=== PATIENT | female | born 1990 | race Caucasian/White ===

== ENCOUNTER 2018-01-05 16:38 | Emergency (ER) | payer SELFPAY ==
--- NOTE | 2018-01-05 17:55 | RAD REPORT ---
EXAM DESCRIPTION: RAD - Foot Right 3 View - 01/05/2018 5:47 pm CLINICAL HISTORY: Trauma to great toe. COMPARISON: None. FINDINGS: Moderate soft tissue swelling affects the great toe. Lucency seen at the base of the dista l phalanx of the great toe lateral aspect.
[2018-01-05 17:56] LABS: Urine Blood NEGATIVE (NEG); Urine Glucose NEGATIVE (NEG); Urine Protein NEGATIVE (NEG); Urine Specific Gravity 1.025 (1.005-1.030)
[2018-01-05] MEDS ORDERED: TETANUS & DIPHTHERIA TOX,ADULT 0.5 ML VIAL ONE (18:19)
[2018-01-05] MEDS ORDERED: CODEINE 30MG/APAP 300MG TAB ONE (18:35)
[2018-01-05] MEDS ORDERED: IBUPROFEN 400 MG TAB ONE (18:35)
--- NOTE | 2018-01-05 18:36 | ER ---
Nurse's Notes [facility] Name: Leon Arango Age: 27 yrs Sex: Female : 1990 Arrival Date: 01/05/2018 Time: 16:41 Bed 23 Private MD: None, None Diagnosis: Nondisplaced fracture of distal phalanx of right great toe Presentation: 01/05 17:12 Presenting complaint: Patient states: " I was moving one of those big box TVs and I ph dropped it on my foot." Swelling and bruising noted to top of R foot, small laceration also present. Transition of care: patient was not received from another setting of care. Onset of symptoms was January 05, 2018. Risk Assessment: Do you want to hurt yourself or someone else? Patient reports no desire to harm self or others. Initial Sepsis Screen: Does the patient meet any 2 criteria? No. Patient's initial sepsis screen is negative. Does the patient have a suspected source of infection? No. Patient's initial sepsis screen is negative. Care prior to arrival: None. 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 - Social history:: Smoking status: Patient uses tobacco products, smokes one-half pack cigarettes per day. - Ebola Screening: : No symptoms or risks identified at this time. Screenin:45 Abuse screen: Denies threats or abuse. Denies injuries from another. Nutritional aj1 screening: No deficits noted. 19:28 Tuberculosis screening: No symptoms or risk factors identified. Fall Risk No fall in aj1 past 12 months (0 pts). No secondary diagnosis (0 pts). No IV (0 pts). Ambulatory Aid- Crutches/Cane/Walker (15 pts). Gait- Impaired (20 pts.). Mental Status- Oriented to own ability (0 pts). Total Garcia Fall Scale indicates Low Risk Score (25-44 pts). As available Patient and Family Educated on Fall Prevention Program and strategies. Assessment: 17:45 General: Appears in no apparent distress. uncomfortable, Behavior is calm, cooperative, aj1 appropriate for age. Pain: Complains of pain in dorsum of right foot Pain does not radiate. Pain currently is 8 out of 10 on a pain scale. Neuro: Level of Consciousness is awake, alert, obeys commands, Oriented to person, place, time, situation, Speech is normal, Facial symmetry appears normal. Cardiovascular: Patient's skin is warm and dry. Respiratory: Airway is patent Respiratory effort is even, unlabored, Respiratory pattern is regular, symmetrical. GI: No signs and/or symptoms were reported involving the gastrointestinal system. : No signs and/or symptoms were reported regarding the genitourinary system. EENT: No signs and/or symptoms were reported regarding the EENT system. Derm: Bruising that is dark purple, on dorsum of right foot. Musculoskeletal: Range of motion: intact in all extremities, Patient is unable to bear weight on the right foot. 18:30 Reassessment: Patient appears in no apparent distress at this time. No changes from aj1 previously documented assessment. Patient and/or family updated on plan of care and expected duration. Pain level reassessed. Patient is alert, oriented x 3, equal unlabored respirations, skin warm/dry/pink. Patient states that her foot is hurting and she would like something for pain. Notified SANTOS Trevizo. 19:27 Reassessment: Patient appears in no apparent distress at this time. No changes from aj1 previously documented assessment. Patient and/or family updated on plan of care and expected duration. Pain level reassessed. Patient is alert, oriented x 3, equal unlabored respirations, skin warm/dry/pink. Vital Signs: 17:14 BP 122 / 83; Pulse 91; Resp 16; Temp 97.9; Pulse Ox 96% on R/A; Weight 111.13 kg; ph Height 5 ft. 2 in. (157.48 cm); Pain 7/10; 17:14 Body Mass Index 44.81 (111.13 kg, 157.48 cm) ph ED Course: 16:41 Patient arrived in ED. mr 16:41 None, None is Private Physician. mr 17:13 Triage completed. ph 17:15 Arm band placed on. ph 17:18 Patric Heard PA is PHCP. cp 17:18 Patric Pablo MD is Attending Physician. cp 17:34 Jenifer Barraza, RN is Primary Nurse. aj1 17:42 X-ray completed. Portable x-ray completed in exam room. Patient tolerated procedure kp1 well. 17:44 XRAY Foot RIGHT 3 View In Process Unspecified. EDMS 17:45 Patient has correct armband on for positive identification. Bed in low position. Call aj1 light in reach. Side rails up X 1. 17:45 No provider procedures requiring assistance completed. aj1 19:29 Patient did not have IV access during this emergency room visit. aj1 Administered Medications: 18:32 Drug: Tetanus-Diphtheria Toxoid Adult 0.5 ml {Catalog Specialist: [employer]. Exp: aj1 04/12/2020. Lot #: [id number]. } Route: IM; Site: right deltoid; 19:30 Follow up: Response: No adverse reaction aj1 18:42 Drug: Ibuprofen 800 mg Route: PO; aj1 19:30 Follow up: Response: No adverse reaction aj1 18:42 Drug: Tylenol #3 (300 mg-30 mg) 2 tabs Route: PO; aj1 19:30 Follow up: Response: No adverse reaction aj1 Outcome: 18:36 Discharge ordered by MD. cp 19:29 Discharged to home via wheelchair, with crutches. aj1 19:29 Condition: good 19:29 Discharge instructions given to patient, Instructed on discharge instructions, follow up and referral plans. no drinking with medication, no driving heavy equipment, medication usage, Demonstrated understanding of instructions, follow-up care, medications, Prescriptions given X 2. 19:30 Patient left the ED. aj1 Signatures: Dispatcher [employer] EDMS Jenifer Barraza, RN RN aj1 Mariya Singh Patricia, RN RN Patric Eric, Cindy King cp 1
--- NOTE | 2018-01-05 18:36 | EDPHYS ---
Physician Documentation [facility] Name: Leon Arango Age: 27 yrs Sex: Female : 1990 Arrival Date: 01/05/2018 Time: 16:41 Bed 23 Private MD: None, None ED Physician Patric Pablo HPI: 01/05 17:26 This 27 yrs old Female presents to ER via Ambulatory with complaints of Foot cp Injury. 17:26 The patient presents with a crush injury, TV, an injury. The complaints affect the cp dorsum of right foot. 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 - Social history:: Smoking status: Patient uses tobacco products, smokes one-half pack cigarettes per day. - Ebola Screening: : No symptoms or risks identified at this time. ROS: 17:30 Constitutional: Negative for body aches, chills, fever, poor PO intake. cp 17:30 Eyes: Negative for injury, pain, redness, and discharge. cp 17:30 ENT: Negative for drainage from ear(s), ear pain, sore throat, difficulty swallowing, difficulty handling secretions. 17:30 Cardiovascular: Negative for chest pain. 17:30 Respiratory: Negative for cough, shortness of breath, wheezing. 17:30 Abdomen/GI: Negative for abdominal pain, nausea, vomiting, and diarrhea. 17:30 Back: Negative for pain at rest, pain with movement, radiated pain. 17:30 MS/extremity: Positive for injury or acute deformity, abrasion, ecchymosis, pain, swelling, tenderness, of the dorsum of right foot. 17:30 All other systems are negative. Exam: 17:40 Constitutional: The patient appears in no acute distress, alert, awake, well developed, cp well nourished, uncomfortable. 17:40 Head/Face: Normocephalic, atraumatic. cp 17:40 Eyes: Periorbital structures: appear normal, Conjunctiva: normal, no exudate, no injection, Lids and lashes: appear normal, bilaterally. 17:40 ENT: External ear(s): are unremarkable, Nose: is normal, Posterior pharynx: is normal, airway is patent. 17:40 Chest/axilla: Inspection: normal. 17:40 Cardiovascular: Rate: normal. 17:40 Respiratory: the patient does not display signs of respiratory distress, Respirations: normal, no use of accessory muscles, no retractions, no splinting, no tachypnea. 17:40 Abdomen/GI: Exam negative for discomfort, distension, guarding, Inspection: abdomen appears normal. 17:40 Musculoskeletal/extremity: Extremities: grossly normal except: noted in the dorsum of right foot: contusion, ecchymosis, pain, Pulses: noted to be 2+ in the right dorsalis pedis artery. 17:40 Skin: injury, abrasion(s), small abrasion noted, of the dorsum of right foot. Vital Signs: 17:14 BP 122 / 83; Pulse 91; Resp 16; Temp 97.9; Pulse Ox 96% on R/A; Weight 111.13 kg; ph Height 5 ft. 2 in. (157.48 cm); Pain 7/10; 17:14 Body Mass Index 44.81 (111.13 kg, 157.48 cm) ph MDM: 17:18 Patient medically screened. cp 18:00 Differential diagnosis: dislocation, closed fracture, contusion. cp 18:35 Data reviewed: vital signs, nurses notes, radiologic studies, plain films. Test cp interpretation: by ED physician or midlevel provider: plain radiologic studies. Counseling: I had a detailed discussion with the patient and/or guardian regarding: the historical points, exam findings, and any diagnostic results supporting the discharge/admit diagnosis, radiology results, the need for outpatient follow up, a family practitioner, to return to the emergency department if symptoms worsen or persist or if there are any questions or concerns that arise at home. 01/05 17:32 Order name: Urine Dipstick--Ancillary (enter results); Complete Time: 19:13 ag 01/05 17:32 Order name: Urine --Ancillary (enter results); Complete Time: 19:13 ag 01/05 17:25 Order name: XRAY Foot RIGHT 3 View; Complete Time: 19:13 cp 01/05 19:13 Interpretation: Report reviewed. cp 01/05 17:26 Order name: Urine Dipstick-Ancillary (obtain specimen); Complete Time: 17:35 cp 01/05 17:26 Order name: Urine Test (obtain specimen); Complete Time: 17:35 cp 01/05 18:30 Order name: Crutches; Complete Time: 18:42 cp 01/05 18:30 Order name: Post-op shoe; Complete Time: 18:42 cp Administered Medications: 18:32 Drug: Tetanus-Diphtheria Toxoid Adult 0.5 ml {Transportation Officer: [employer]. Exp: aj1 04/12/2020. Lot #: [id number]. } Route: IM; Site: right deltoid; 19:30 Follow up: Response: No adverse reaction 18:42 Drug: Ibuprofen 800 mg Route: PO; aj1 19:30 Follow up: Response: No adverse reaction 18:42 Drug: Tylenol #3 (300 mg-30 mg) 2 tabs Route: PO; aj1 19:30 Follow up: Response: No adverse reaction [facility] Disposition: 01/05/18 18:36 Discharged to Home. Impression: Nondisplaced fracture of distal phalanx of right great toe. - Condition is Stable. - Discharge Instructions: Toe Fracture. - Prescriptions for Naprosyn 500 mg Oral Tablet - take 1 tablet by ORAL route 2 times per day take with food; 20 tablet. Tylenol- Codeine #3 300-30 mg Oral Tablet - take 2 tablets by ORAL route every 6 hours As needed; 20 tablet. - Medication Reconciliation Form, Thank You Letter, Antibiotic Education, Prescription Opioid Use form. - Follow up: Private Physician; When: 2 - 3 days; Reason: Recheck today's complaints. - Problem is new. - Symptoms have improved. Addendum: 01/09/2018 09:00 Co-signature as Attending Physician, Patric Pablo MD I agree with the assessment and c olsen plan of care. Signatures: Dispatcher [employer] Jenifer Coleman RN RN aj1 Patric Pablo MD MD cha Hall, Patricia RN RN Patric Heard PA PA cp Corrections: (The following items were deleted from the chart) 01/05 18:37 18:36 01/05/2018 18:36 Discharged to Home. Impression: Nondisplaced fracture of distal cp phalanx of left great toe. Condition is Stable. Forms are Medication Reconciliation Form, Thank You Letter, Antibiotic Education, Prescription Opioid Use. Follow up: Private Physician; When: 2 - 3 days; Reason: Recheck today's complaints. Problem is new. Symptoms have improved. cp 19:30 18:37 01/05/2018 18:36 Discharged to Home. Impression: Nondisplaced fracture of distal aj1 phalanx of right great toe. Condition is Stable. Forms are Medication Reconciliation Form, Thank You Letter, Antibiotic Education, Prescription Opioid Use. Follow up: Private Physician; When: 2 - 3 days; Reason: Recheck today's complaints. Problem is new. Symptoms have improved. cp
[2018-01-05 19:38] VITALS: BP 122/83; TEMP 97.9; O2SAT 96
== END 2018-01-05 19:30 | disposition home or self-care (01) ==
LOC: ER 16:38
DX: S92.424A Nondisplaced fracture of distal phalanx of right great toe, initial encounter for closed fracture (principal); X58.XXXA Exposure to other specified factors, initial encounter; Y93.89 Activity, other specified; Y92.9 Unspecified place or not applicable; Z23 Encounter for immunization; F17.210 Nicotine dependence, cigarettes, uncomplicated
CPT/HCPCS: 81003; 81025; 90714; 99283

== ENCOUNTER 2018-08-21 16:43 | Emergency (ER) | payer SELFPAY ==
--- NOTE | 2018-08-21 17:08 | EDPHYS ---
Physician Documentation [facility] Name: Leon Arango Age: 28 yrs Sex: Female : 1990 Arrival Date: 08/21/2018 Time: 16:46 Bed 23 Private MD: ED Physician Matthew Auguste HPI: 08/21 17:23 This 28 yrs old Female presents to ER via Ambulatory with complaints of snw Toothache. 17:23 The patient presents with broken tooth/teeth, pain. The problem is located in the upper snw left cuspid (#11). Onset: The symptoms/episode began/occurred gradually, 6 month(s) ago, and became worse yesterday. Duration: The symptoms are continuous. Associated signs and symptoms: The patient has no apparent associated signs or symptoms. Severity of symptoms: At their worst the symptoms were moderate. It is unknown whether or not the patient has had similar symptoms in the past. It is unknown whether or not the patient has recently seen a physician. 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 - Social history:: Smoking status: Patient uses tobacco products, Patient uses alcohol, occasionally. - Ebola Screening: : Patient negative for fever greater than or equal to 101.5 degrees Fahrenheit, and additional compatible Ebola Virus Disease symptoms Patient denies exposure to infectious person Patient denies travel to an Ebola-affected area in the 21 days before illness onset. ROS: 17:22 Constitutional: Negative for fever, chills, and weight loss, Eyes: Negative for injury, snw pain, redness, and discharge, Neck: Negative for injury, pain, and swelling, Cardiovascular: Negative for chest pain, palpitations, and edema, Respiratory: Negative for shortness of breath, cough, wheezing, and pleuritic chest pain, Abdomen/GI: Negative for abdominal pain, nausea, vomiting, diarrhea, and constipation, Back: Negative for injury and pain, : Negative for injury, bleeding, discharge, and swelling, MS/Extremity: Negative for injury and deformity, Skin: Negative for injury, rash, and discoloration, Neuro: Negative for headache, weakness, numbness, tingling, and seizure. 17:22 ENT: Positive for dental pain. Exam: 17:21 Constitutional: This is a well developed, well nourished patient who is awake, alert, snw and in no acute distress. Head/Face: Normocephalic, atraumatic. Eyes: Pupils equal round and reactive to light, extra-ocular motions intact. Lids and lashes normal. Conjunctiva and sclera are non-icteric and not injected. Cornea within normal limits. Periorbital areas with no swelling, redness, or edema. Neck: Trachea midline, no thyromegaly or masses palpated, and no cervical lymphadenopathy. Supple, full range of motion without nuchal rigidity, or vertebral point tenderness. No Meningismus. Chest/axilla: Normal chest wall appearance and motion. Nontender with no deformity. No lesions are appreciated. Cardiovascular: Regular rate and rhythm with a normal S1 and S2. No gallops, murmurs, or rubs. Normal PMI, no JVD. No pulse deficits. Respiratory: Lungs have equal breath sounds bilaterally, clear to auscultation and percussion. No rales, rhonchi or wheezes noted. No increased work of breathing, no retractions or nasal flaring. Abdomen/GI: Soft, non-tender, with normal bowel sounds. No distension or tympany. No guarding or rebound. No evidence of tenderness throughout. Back: No spinal tenderness. No costovertebral tenderness. Full range of motion. Skin: Warm, dry with normal turgor. Normal color with no rashes, no lesions, and no evidence of cellulitis. MS/ Extremity: Pulses equal, no cyanosis. Neurovascular intact. Full, normal range of motion. Neuro: Awake and alert, GCS 15, oriented to person, place, time, and situation. Cranial nerves II-XII grossly intact. Motor strength 5/5 in all extremities. Sensory grossly intact. Cerebellar exam normal. Normal gait. Psych: Awake, alert, with orientation to person, place and time. Behavior, mood, and affect are within normal limits. 17:21 ENT: External ear(s): are unremarkable, Ear canal(s): are normal, TM's: are normal, Nose: is normal, Mouth: is normal, Posterior pharynx: is normal, Dental exam: fractured teeth are noted, specifically the upper left cuspid (#11), pain, Voice: is normal. Vital Signs: 16:49 BP 104 / 54; Pulse 85; Resp 18; Temp 98.2(TE); Pulse Ox 96% on R/A; Weight 108.86 kg; hj Height 5 ft. 2 in. (157.48 cm); Pain 8/10; 16:49 Body Mass Index 43.90 (108.86 kg, 157.48 cm) hj MDM: 16:51 Patient medically screened. snw 17:20 Data reviewed: vital signs, nurses notes. Data interpreted: Pulse oximetry: on room air snw is 96 %. Interpretation: acceptable. Counseling: I had a detailed discussion with the patient and/or guardian regarding: the historical points, exam findings, and any diagnostic results supporting the discharge/admit diagnosis, the need for outpatient follow up, to return to the emergency department if symptoms worsen or persist or if there are any questions or concerns that arise at home. Special discussion: Based on the history and exam findings, there is no indication for further emergent testing or inpatient evaluation. I discussed with the patient/guardian the need to see a dentist for further evaluation of the symptoms. Administered Medications: 17:30 Drug: Clindamycin 300 mg Route: PO; ls4 17:50 Follow up: Response: No adverse reaction ls4 17:30 Drug: UltRAM 50 mg Route: PO; ls4 17:50 Follow up: Response: No adverse reaction; Marked relief of symptoms ls4 Disposition: 08/22 07:19 Co-signature as Attending Physician, Matthew Auguste MD. rn Disposition: 08/21/18 17:08 Discharged to Home. Impression: Cracked tooth, Dental caries, unspecified. - Condition is Stable. - Discharge Instructions: Dental Caries, Adult, Dental Pain, Diet and Dental Disease, Preventive Dental Care, Adult. - Prescriptions for chlorhexidine gluconate 0.12 % Mucous Membrane mouthwash - place 15 milliliter by MUCOUS MEMBRANE route 2 times per day after brushing teeth, swish in mouth for 30 seconds then spit out; 480 milliliter. Clindamycin HCl 150 mg Oral Capsule - take 1 capsule by ORAL route every 6 hours for 10 days; 40 capsule. Diclofenac Sodium 75 mg Oral Tablet Sustained Release - take 1 tablet by ORAL route 2 times per day; 30 tablet. - Medication Reconciliation Form, Thank You Letter, Antibiotic Education, Prescription Opioid Use form. - Follow up: Private Physician; When: 1 - 2 days; Reason: Recheck today's complaints, Continuance of care, Re-evaluation by your physician. Follow up: Emergency Department; When: As needed; Reason: Worsening of condition. - Notes: Dental wax Signatures: Perlita Lockhart, SALES PROFESSIONAL-C SALES PROFESSIONAL-Csnw Matthew Auguste MD MD rn Joaquin, Henry, RN RN hj Stewart, Lisa, RN RN ls4 Corrections: (The following items were deleted from the chart) 08/21 17:52 17:08 08/21/2018 17:08 Discharged to Home. Impression: Cracked tooth; Dental caries, ls4 unspecified. Condition is Stable. Forms are Medication Reconciliation Form, Thank You Letter, Antibiotic Education, Prescription Opioid Use. Follow up: Private Physician; When: 1 - 2 days; Reason: Recheck today's complaints, Continuance of care, Re-evaluation by your physician. Follow up: Emergency Department; When: As needed; Reason: Worsening of condition. snw
--- NOTE | 2018-08-21 17:08 | ER ---
Nurse's Notes [facility] Name: Leon Arango Age: 28 yrs Sex: Female : 1990 Arrival Date: 08/21/2018 Time: 16:46 Bed 23 Private MD: Diagnosis: Cracked tooth;Dental caries, unspecified Presentation: 08/21 16:46 Presenting complaint: Patient states: i have toothache from upper L side; i believe it hj was broken; pain 8/10; took ibuprofen 3 hours ago;. Transition of care: patient was not received from another setting of care. Onset of symptoms was August 21, 2018. Risk Assessment: Do you want to hurt yourself or someone else? Patient reports no desire to harm self or others. Initial Sepsis Screen: Does the patient meet any 2 criteria? No. Patient's initial sepsis screen is negative. Does the patient have a suspected source of infection? No. Patient's initial sepsis screen is negative. Care prior to arrival: None. 16:46 Method Of Arrival: Ambulatory 16:46 Acuity: KESHAWN 4 hj Triage Assessment: 16:48 General: Appears in no apparent distress. uncomfortable, Behavior is calm, cooperative, hj appropriate for age. Pain: Complains of pain in tooth. 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 - Social history:: Smoking status: Patient uses tobacco products, Patient uses alcohol, occasionally. - Ebola Screening: : Patient negative for fever greater than or equal to 101.5 degrees Fahrenheit, and additional compatible Ebola Virus Disease symptoms Patient denies exposure to infectious person Patient denies travel to an Ebola-affected area in the 21 days before illness onset. Screenin:49 Abuse screen: Denies threats or abuse. Denies injuries from another. Nutritional hj screening: No deficits noted. Tuberculosis screening: No symptoms or risk factors identified. Fall Risk None identified. Assessment: 17:51 General: Appears see triage assessment . Neuro: No deficits noted. Respiratory: No ls4 deficits noted. EENT: Reports pain in upper left cuspid (#11). Musculoskeletal: No deficits noted. Vital Signs: 16:49 BP 104 / 54; Pulse 85; Resp 18; Temp 98.2(TE); Pulse Ox 96% on R/A; Weight 108.86 kg; hj Height 5 ft. 2 in. (157.48 cm); Pain 8/10; 16:49 Body Mass Index 43.90 (108.86 kg, 157.48 cm) ED Course: 16:46 Patient arrived in ED. mr 16:48 Triage completed. hj 16:49 Arm band placed on right wrist. hj 16:50 Patient has correct armband on for positive identification. Bed in low position. Call hj light in reach. Side rails up X 1. 16:51 Perlita Lockhart FNP-C [facility]. snw 16:51 Matthew Auguste MD is Attending Physician. snw 16:52 Joan Rosa, ELIZABETH is Primary Nurse. ls4 16:54 No provider procedures requiring assistance completed. ls4 17:52 Patient did not have IV access during this emergency room visit. ls4 Administered Medications: 17:30 Drug: Clindamycin 300 mg Route: PO; ls4 17:50 Follow up: Response: No adverse reaction ls4 17:30 Drug: UltRAM 50 mg Route: PO; ls4 17:50 Follow up: Response: No adverse reaction; Marked relief of symptoms ls4 Outcome: 17:08 Discharge ordered by . snw 17:52 Discharged to home ambulatory, with family. ls4 17:52 Condition: stable 17:52 Discharge instructions given to patient, family, Instructed on discharge instructions, follow up and referral plans. medication usage, Demonstrated understanding of instructions, follow-up care, medications, Prescriptions given X 3. 17:52 Patient left the ED. ls4 Signatures: Perlita Lockhart FNP-C SHEET METAL WORKER MAINTENANCE-Dipti Chapis Singh Ari Shepard, RN RN Joan Rosa RN RN ls4 Corrections: (The following items were deleted from the chart) 16:51 16:49 Pulse 85bpm; Resp 18bpm; Pulse Ox 96% RA; Temp 98.2F Temporal; 108.86 kg; Height hj 5 ft. 2 in.; BMI: 43.9; Pain 8/10; hj
[2018-08-21] MEDS ORDERED: TRAMADOL HCL 50 MG TAB ONE (17:35)
[2018-08-21] MEDS ORDERED: CLINDAMYCIN HCL 150 MG CAP ONE (17:35)
[2018-08-21 19:44] VITALS: BP 104/54; TEMP 98.2; O2SAT 96
== END 2018-08-21 17:52 | disposition home or self-care (01) ==
LOC: ER 16:43
DX: K03.81 Cracked tooth (principal); K02.9 Dental caries, unspecified; Z72.0 Tobacco use
CPT/HCPCS: 99283

== ENCOUNTER 2021-05-28 14:31 | Emergency (ER) | payer OTHER, SELFPAY ==
--- NOTE | 2021-05-28 17:23 | RAD REPORT ---
EXAM DESCRIPTION: CTAbdomen Pelvis Wo Contrast - 05/28/2021 5:12 pm CLINICAL HISTORY: no contrast;Abd pain COMPARISON: No comparisons TECHNIQUE: CT of the abdomen and pelvis was performed. All CT scans are performed using dose optimization technique as appropriate and may include automated exposure control or mA/KV adjustment according to patient size. FINDINGS: Lower chest: No acute abnormality. Liver: No acute abnormality or suspicious lesions. Biliary: No biliary ductal dilatation. Stomach: No significant focal abnormality. Duodenum: No significant focal abnormality. Pancreas: No significant abnormality. Spleen: No significant abnormality. Adrenal: No suspicious lesions. Kidney/ureter: No hydronephrosis. No renal calculi. Retroperitoneum: No retroperitoneal adenopathy. Vascular: No aneurysm. Bowel: No significant focal abnormality. Peritoneum: No ascites or free air. No hemoperitoneum. Bladder: Grossly unremarkable. Reproductive: Post gravid uterus. There is some blood products in in the region of the endometrial ca nal. This is not well assessed by CT Bones: No acute fracture. Other: Abdominal wall hematoma measuring approximately 14 cm x 4.5 cm. There is edema within the soft tissues of the pannus. This is in the rectus musculature. IMPRESSION: Moderate-sized abdominal wall hematoma, presumably related to recent . .
--- NOTE | 2021-05-28 18:01 | EDPHYS ---
Physician Documentation [facility] Name: Leon Arango Age: 31 yrs Sex: Female : 1990 Arrival Date: 05/28/2021 Time: 14:38 Bed 30 Private MD: ED Physician Jluis Rogers HPI: 05/28 17:35 This 31 yrs old Female presents to ER via Ambulatory with complaints of Post kb Problem, Laceration To Arm. 17:32 Pt reports she was trying to open a package with a boxcutter and accidentally cut her kb left arm. Also reports she has had pain above incision that she was supposed to see her OB for, but cut her arm just before she was supposed to leave for the appt. Her dr told her to just go to the ER and let us know about her problem. 17:35 The patient has a laceration related to: opening package occurred at home, and there kb are no complicating factors. The injury was accidental. The laceration(s) is(are) located on the dorsal aspect of left forearm. Onset: The symptoms/episode began/occurred just prior to arrival. Associated signs and symptoms: The patient has no apparent associated signs or symptoms. The patient has not experienced similar symptoms in the past. The patient has not recently seen a physician. 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 - Social history:: Smoking status: Patient reports the use of cigarette tobacco products, denies chronic smoking, but will smoke occasionally. ROS: 17:30 Constitutional: Negative for fever, chills, and weight loss. kb 17:30 Abdomen/GI: Positive for abdominal pain, Negative for nausea, vomiting, and diarrhea. 17:30 Skin: Positive for laceration(s), of the dorsal aspect of left forearm. 17:30 All other systems are negative. Exam: 17:30 Constitutional: This is a well developed, well nourished patient who is awake, alert, kb and in no acute distress. Head/Face: Normocephalic, atraumatic. ENT: Moist Mucous membranes Cardiovascular: Regular rate and rhythm with a normal S1 and S2. No gallops, murmurs, or rubs. No pulse deficits. Respiratory: Respirations even and unlabored. No increased work of breathing, no retractions or nasal flaring. MS/ Extremity: Pulses equal, no cyanosis. Neurovascular intact. Full, normal range of motion. Neuro: Awake and alert, GCS 15, oriented to person, place, time, and situation. Moves all extremities. Normal gait. Psych: Awake, alert, with orientation to person, place and time. Behavior, mood, and affect are within normal limits. 17:30 Abdomen/GI: Inspection: recent incision is healing well, no redness, drainage or warmth noted. , Bowel sounds: normal, Palpation: soft, in all quadrants, mild abdominal tenderness, in the suprapubic area. 17:31 Skin: injury, laceration(s), the wound is approximately 1 cm(s), of the dorsal aspect kb of left forearm, that can be described as clean, no foreign body, linear, without bleeding. Vital Signs: 14:54 BP 144 / 96; Pulse 89; Resp 19; Temp 97.8; Pulse Ox 100% ; Weight 122.47 kg; Height 5 jl7 ft. (152.40 cm); Pain 8/10; 17:43 BP 139 / 92; Pulse 88; Resp 19; Pulse Ox 100% on R/A; ld1 14:54 Body Mass Index 52.73 (122.47 kg, 152.40 cm) jl7 Laceration: 18:00 Wound Repair of 1cm ( 0.4in ) subcutaneous laceration to dorsal aspect of left forearm. kb Linear shaped.. Distal neuro/vascular/tendon intact. Anesthesia: Wound infiltrated with 1 mls of 1% lidocaine. Wound prep: Extensive cleansing with hibiclenz by me, Wound irrigation with saline by me. Skin closed with 2 4-0 Prolene using simple sutures and sterile technique. Patient tolerated well. MDM: 16:32 Patient medically screened. kb 17:30 Data reviewed: vital signs, nurses notes. Data interpreted: Pulse oximetry: on room air kb is 100 %. Interpretation: normal. Counseling: I had a detailed discussion with the patient and/or guardian regarding: the historical points, exam findings, and any diagnostic results supporting the discharge/admit diagnosis, radiology results, the need for outpatient follow up, a family practitioner, an OB/Gyne specialist, to return to the emergency department if symptoms worsen or persist or if there are any questions or concerns that arise at home. 18:02 ED course: WORK STUDY STUDENT aware reviewed. kb 05/28 16:43 Order name: CT Abd/Pelvis - Without Contrast; Complete Time: 17:29 kb 05/28 16:44 Order name: Dressing - Wound; Complete Time: 17:14 kb 05/28 16:44 Order name: Gloves, Sterile; Complete Time: 17:14 kb 05/28 16:44 Order name: Prolene, Sutures; Complete Time: 17:14 kb 05/28 16:44 Order name: Setup Suture Tray; Complete Time: 17:14 kb Administered Medications: 18:00 Drug: Lidocaine (1 %) 1 vials {Note: administered by Geraldine Acuna FARM REPORTER..} Volume: 5 aa5 ml; Route: Infiltration; Disposition: 05/29 12:53 Co-signature as Attending Physician, Jluis Rogers MD I agree with the assessment and kdr plan of care. Disposition Summary: 05/28/21 18:01 Discharge Ordered Location: Home kb Condition: Stable kb Diagnosis - Hematoma lower abdomen kb - Laceration without foreign body of right forearm kb Followup: kb - With: Emergency Department - When: As needed - Reason: Worsening of condition Followup: kb - With: Private Physician - When: 2 - 3 days - Reason: Recheck today's complaints, Continuance of care, Re-evaluation by your physician Discharge Instructions: - Discharge Summary Sheet kb - Hematoma, [id number] kb - Laceration Care, Adult, [id number] kb Forms: - Medication Reconciliation Form kb - Thank You Letter kb - Antibiotic Education kb - Prescription Opioid Use kb Prescriptions: - Tramadol 50 mg Oral Tablet - take 1 tablet by ORAL route every 8 hours as needed; 12 tablet; Refills: 0, kb Product Selection Permitted Signatures: Dispatcher [employer] EDMS Geraldine Acuna, Jluis Scales MD MD kdr Calderon, Audri RN RN aa5 Beck, Jahala, RN RN jl7
--- NOTE | 2021-05-28 18:01 | ER ---
Nurse's Notes [facility] Name: Leon Arango Age: 31 yrs Sex: Female : 1990 Arrival Date: 05/28/2021 Time: 14:38 Bed 30 Private MD: Diagnosis: Hematoma lower abdomen;Laceration without foreign body of right forearm Presentation: 05/28 14:54 Chief complaint: Patient states: 1 week ago and the incision is not healing jl7 properly and the pain is not being controlled, missed followup appointment today due to cutting left forearm while opening a box, the OB doctor said to come to the ER and to tell yall what my appointment with them was for and see if jamir can help while taking a look at the laceration on my arm. Coronavirus screen: At this time, the client does not indicate any symptoms associated with coronavirus-19. Ebola Screen: No symptoms or risks identified at this time. Complicating Factors: The type of wound is a puncture. Initial Sepsis Screen: Does the patient meet any 2 criteria? No. Patient's initial sepsis screen is negative. Does the patient have a suspected source of infection? No. Patient's initial sepsis screen is negative. Risk Assessment: Do you want to hurt yourself or someone else? Patient reports no desire to harm self or others. Onset of symptoms was May 28, 2021. 14:54 Method Of Arrival: Ambulatory [facility] 14:54 Acuity: KESHAWN 3 jl7 Triage Assessment: 15:01 General: Appears in no apparent distress. uncomfortable, Behavior is calm, cooperative, jl7 appropriate for age. Pain: Complains of pain in right lower quadrant and left lower quadrant Pain currently is 8 out of 10 on a pain scale. Injury Description: Laceration sustained to palmar aspect of left forearm. 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 - Social history:: Smoking status: Patient reports the use of cigarette tobacco products, denies chronic smoking, but will smoke occasionally. Screenin:46 Abuse screen: Denies threats or abuse. Nutritional screening: No deficits noted. ap3 Tuberculosis screening: No symptoms or risk factors identified. Fall Risk No fall in past 12 months (0 pts). No secondary diagnosis (0 pts). No IV (0 pts). Ambulatory Aid- None/Bed Rest/Nurse Assist (0 pts). Gait- Weak (10 pts.). Mental Status- Oriented to own ability (0 pts). Total Garcia Fall Scale indicates No Risk (0-24 pts). Assessment: 15:44 General: Appears in no apparent distress. Behavior is calm, cooperative. Pain: ap3 Complains of pain in abdomen and palmar aspect of left forearm Pain began gradually. Neuro: Level of Consciousness is awake, alert, obeys commands, Speech is normal. Respiratory: Airway is patent. GI: Abdomen is obese. Derm: Wound noted palmar aspect of left forearm and abdomen. Musculoskeletal:. Injury Description: post concerns. 15:47 Injury Description: Laceration is clean. ap3 16:07 Cardiovascular: Patient's skin is warm and dry. ap3 17:43 Reassessment: Patient appears in no apparent distress at this time. No changes from ld1 previously documented assessment. Patient and/or family updated on plan of care and expected duration. Pain level reassessed. Patient is alert, oriented x 3, equal unlabored respirations, skin warm/dry/pink. 18:20 Reassessment: Patient is alert, oriented x 3, equal unlabored respirations, skin aa5 warm/dry/pink. Vital Signs: 14:54 BP 144 / 96; Pulse 89; Resp 19; Temp 97.8; Pulse Ox 100% ; Weight 122.47 kg; Height 5 jl7 ft. (152.40 cm); Pain 8/10; 17:43 BP 139 / 92; Pulse 88; Resp 19; Pulse Ox 100% on R/A; ld1 14:54 Body Mass Index 52.73 (122.47 kg, 152.40 cm) jl7 ED Course: 14:38 Patient arrived in ED. as 15:01 Triage completed. jl7 15:01 Arm band placed on right wrist. jl7 15:47 Patient has correct armband on for positive identification. Bed in low position. Call ap3 light in reach. Side rails up X 1. Pulse ox on. NIBP on. Door closed. Noise minimized. 16:31 Geraldine Acuna FNP-C [facility]. kb 16:31 Jluis Rogers MD is Attending Physician. kb 17:12 CT Abd/Pelvis - Without Contrast In Process Unspecified. EDMS 17:14 Maryann Arguelles, RN is Primary Nurse. ld1 18:05 Assist provider with laceration repair on left FA that was 2.5 cm. or less using 2 aa5 sutures. Set up tray. Performed by Geraldine WADSWORTH Dressed with band aid, Patient tolerated well. 18:06 Primary Nurse role handed off by Maryann Arguelles, RN ld1 18:20 Patient did not have IV access during this emergency room visit. aa5 Administered Medications: 18:00 Drug: Lidocaine (1 %) 1 vials {Note: administered by Geraldine Acuna, AGRICULTURAL SYSTEMS SPECIALIST..} Volume: 5 aa5 ml; Route: Infiltration; Outcome: 18:01 Discharge ordered by MD. kb 18:20 Discharged to home ambulatory. aa5 18:20 Condition: stable 18:20 Discharge instructions given to patient, Instructed on discharge instructions, follow up and referral plans. medication usage, Demonstrated understanding of instructions, follow-up care, medications, Prescriptions given X 1. 18:22 Patient left the ED. aa5 Signatures: Dispatcher [employer] [facility] Geraldine Acuna FNP-C FNP-Kelsea Morales Audri, RN RN aa5 Matthew Beck RN RN jl7 Ramya Henry RN RN ap3 Maryann Arguelles, RN RN ld1 Corrections: (The following items were deleted from the chart) 18:29 18:20 No provider procedures requiring assistance completed. aa5 aa5
[2021-05-28 18:28] VITALS: TEMP 97.8; O2SAT 100
[2021-05-28 18:29] VITALS: BP 139/92
== END 2021-05-28 18:22 | disposition home or self-care (01) ==
LOC: ER 14:31
PROC: 0JQH0ZZ Repair Left Lower Arm Subcutaneous Tissue and Fascia, Open Approach (ICD-10-PCS; principal; 2021-05-28)
DX: S51.812A Laceration without foreign body of left forearm, initial encounter (principal); S30.1XXA Contusion of abdominal wall, initial encounter; W26.0XXA Contact with knife, initial encounter; Y93.89 Activity, other specified; F17.210 Nicotine dependence, cigarettes, uncomplicated
CPT/HCPCS: 74176; 99284

== ENCOUNTER 2022-04-29 10:21 | Emergency (ER) | payer OTHER ==
--- OUTSIDE RECORDS SUMMARY | 2022-04-29 11:05 | XMS REPORT | Continuity of Care Document ---
:1990 Author Organization [facility] t Address [address] [place] [address] Care Team Providers Name Role Phone Herrera LUGO, Damián Dawson Primary Care Physician [phone] Bobby Hernandez Attending Clinician BOBBY PERSON Attending Clinician Unavailable Gloria Judge PA-C Attending Clinician Keara Kennedy MD Attending Clinician BOBBY PERSON Admitting Clinician Unavailable Payers Payer Name Policy Type Policy Number Effective Date Expiration Date Fabio moncada RMP FAMILY [id number] 2015 University o f PLANNING 00:00:00 [facility] PLANNING LLOYD [id number] [place] [id number], [place] [address]Htymmr Problems Condition Condition Condition Status Onset Resolution Last Treating Co mments Source Name Details Category Date Date Treatment Clinician Date Lower Lower Disease Active Univers abdominal abdominal 04-15 ity of pain pain 00:00: [address] Right Right Disease Active Univers upper upper 6 ity of quadrant quadrant 00:00: [place] pain pain [address] [place] [address] Eczema, Eczema, Disease Active Univers unspecifie unspecifie 01-14 it y of d type d type 00:00: [address] Previous Previous Disease Active Unive rs 9-24 ity of section section 00:00: [place] 00 [facility] Branch Nausea and Nausea and Disease Active U nivers vomiting vomiting 5-03 ity of during during 00:00: [place] 00 Medi moe prior to prior to Branch 22 weeks 22 weeks gestation gestation Sleep Sleep Disease Active Univers disturbanc disturbanc 3-02 it y of es es 00:00: [place] [facility] Morbid Morbid Disease Active Univers obesity obesity 2-02 [place] of with body [place] mass index mass index 00 Me dical of of Branch 40.0-49.9 40.0-49.9 Morbid Morbid Disease Active Univers obesity obesity 2-02 ity of with body with body 00:[place] mass index mass index 00 Me dical of of Branch 40.0-49.9 40.0-49.9 Abdominal Abdominal Disease Active 2019-08 Uni vers pain, left pain, left 2-14 it y of upper upper 00:00: [place] quadrant quadrant [facility] Fatty Fatty Disease Active 2019-08 Univers liver liver 2-14 ity of 00:00: [place] 00 Medical Branch Bilateral Bilateral Disease Active 2015-08 Uni vers carpal carpal 2-23 ity of tunnel tunnel 00:00: [place] syndrome syndrome 00 [facility] Obesity, Obesity, Disease Active 2015-08 Unive rs unspecifie unspecifie 2-06 it y of d d 00:00: [place] 00 Medical Branch Acid Acid Disease Active Univers reflux reflux 7-13 ity of 00:00: [place] [facility] History of History of Disease Active U nivers anxiety anxiety 3-29 ity of 00:00: [place] [facility] History of History of Disease Active U nivers depression depression 3-29 it y of 00:00: [place] 00 Medical Branch Nexplanon Nexplanon Disease Resolve 2020-10-13 2020-10-14 Univers removal removal d - 00:00:00 00:12:50 ity of 00:00: [place] 00 Medical Branch Recurrent Recurrent Disease Resolve 2015-082019-08-22 2019-08-22 Univers genital genital d 2- 00:00:00 22:23:59 ity of HSV HSV 00:00: [place] (herpes (herpes 00 Medical simplex simplex Branch virus) virus) infection infection Nexplanon Nexplanon Disease Resolve 2015-082019-08-22 2019-08-[address] d 2-14 00:00:00 22:23:40 it y of 00:00: [place] 00 Medical Branch Multiparit Multiparit Disease Resolve 2019-08-22 2019-08-22 Univers y y d 3- 00:00:00 22:24:01 ity of 00:00: [place] 00 Medical Branch Supervisio Supervisio Disease Resolve 2019-08-22 2019-08-22 Univers n of high n of high d 3-29 00:00:00 22:24:02 ity of risk risk 00:00: [place] , , 00 Me dical antepartum antepartum Br anch Herpes Herpes Disease Resolve 2019-08-22 2019-08-22 Univers genitalia genitalia d 3-29 00:00:00 22:23:58 ity of 00:00: [place] 00 Medical Branch Abnormal Abnormal Disease Resolve 2019-08-12 2019-08-12 Univers maternal maternal d 8-29 00:00:00 15:31:53 it y of glucose glucose 00:00: [place] tolerance, tolerance, 00 Me dical antepartum antepartum Br anch UTI in UTI in Disease Resolve 2019-08-12 2019-08-12 Univers d 8-10 00:00:00 15:32:16 ity of 00:00: [place] 00 Medical Branch Nausea and Nausea and Disease Resolve 2019-08-12 2019-08-12 Univers vomiting vomiting d 6-15 00:00:00 15:31:57 it y of during during 00:00: [place] 00 [facility] Branch Glucosuria Glucosuria Disease Resolve 2019-08-12 2019-08-12 Univers d 6-15 00:00:00 15:31:55 ity of 00:00: [place] 00 Medical Branch Pain in Pain in Disease Resolve 2019-08-12 2019-08-12 Univers both feet both feet d 5-18 00:00:00 15:32:01 ity of 00:00: [place] 00 Medical Branch Cramping Cramping Disease Resolve 2019-08-12 2019-08-12 Univers affecting affecting d 4-18 00:00:00 15:32:18 ity of , , [place] antepartum antepartum 00 Me dical Branch Disease Resolve 2019-08-12 2019-08-12 Univers with with d 3- 00:00:00 15:32:08 ity of adoption adoption 00:00: [place] planned, planned, 00 Medica l antepartum antepartum Br anch History of History of Disease Resolve 2019-08-12 2019-08-12 Univers miscarriag miscarriag d 3- 00:00:00 15:32:06 ity of e, e, 00:00: [place] currently currently 00 [facility] Branch Disease Resolve 2019-08-12 2019-08-12 Univers with with d 3 00:00:00 15:32:03 ity of history of history of 00:[place] caesarean caesarean 00 [facility] section, section, Branch antepartum antepartum Papanicola Papanicola Disease Resolve 2019-08-12 2019-08-12 Univers ou smear ou smear d 1-06 00:00:00 15:32:09 it y of of cervix of cervix 00:00[place] with low with low 00 Medica l grade grade Branch squamous squamous intraepith intraepith elial elial lesion lesion (LGSIL) (LGSIL) Obesity Obesity Disease Resolve 2019-08-12 2019-08-12 Univers complicati complicati d 1-05 00:00:00 15:32:14 ity of ng ng 00:00: [place] , , 00 Me dical childbirth childbirth Br anch , or , or puerperium puerperium , , antepartum antepartum Liveborn Liveborn Disease Resolve 2015-082016-07-19 2016-07-19 Univers by by d 0-13 00:00:00 19:27:24 [place] of [place] 38 weeks 38 weeks Disease Resolve 2015-082016-07-19 2016-07-19 Univers gestation gestation d 0-12 00:00:00 19:27:24 ity of of of 00:00: [place] 00 [facility] Branch Ruptured, Ruptured, Disease Resolve 2015-082016-07-19 2016-07-19 Univers membranes, membranes, d 0-12 00:00:00 19:27:24 it[place] of premature premature 00:00[place] 33 weeks 33 weeks Disease Resolve 2016-07-19 2016-07-19 Univers gestation gestation d 9-03 00:00:00 19:27:24 ity of of of 00:00: [place] 00 Medi moe Branch Disease Resolve 2015-11-10 2015-11-10 Univers with with d 1-13 00:00:00 18:30:01 ity of adoption adoption 00:00: [place] planned, planned, 00 Medica l second second Branch trimester trimester Proteinuri Proteinuri Disease Resolve 2015-11-10 2015-11-10 Univers a a d 1-05 00:00:00 18:27:43 ity of complicati complicati 00:00[place] ng [place] 00 Medical , , Br anch second second trimester trimester Uterine Uterine Disease Resolve 2015-11-10 2015-11-10 Univers size-date size-date d 1-05 00:00:00 18:28:49 ity of discrepanc discrepanc 00:00[place], y, 00 Medical antepartum antepartum Br anch , second , second trimester trimester Allergies, Adverse Reactions, Alerts Allergy Allergy Status Severity Reaction(s) Onset Inactive Treating Comm ents Source Name Type Date Date Clinician NO KNOWN Drug Active Univers ALLERGIE Class ity of S [facility] Social History Social Habit Start Date Stop Date Quantity Comments Source ASSERTION 2020-09-04 University 00:00:00 [facility] Exposure to 2022-04-03 2022-04-13 Not sure [facility] SARS-CoV-2 (event) 00:00:00 10:52:00 [facility] Alcohol intake 2022-03-04 2022-03-04 0 /d [facility] 00:00:00 00:00:00 [facility] Cigarettes smoked 2022-03-01 2022-03-01 [facility] ity of current (pack per 00:00:00 00:00:00 ) - Reported Branch Cigarette 2022-03-01 2022-03-01 University of pack-years 00:00:00 00:00:00 [facility] Tobacco use and 2022-03-01 2022-03-01 Smokeless Universit y of exposure 00:00:00 00:00:00 tobacco non-user [facility] Tobacco Comment 2022-03-01 2022-03-01 ecigs: "aurelio Univer sity of 00:00:00 00:00:00 pod per day" [facility] History of tobacco 2019-04-15 Cigarette Smoker University of use 00:00:00 [facility] Sex [birth year] Universit y of 00:00:00 00:00:00 [facility] Smoking Status Start Date Stop Date Source Ex-smoker 2022-03-01 00:00:00 2022-03-01 00:00:00 [facility] Medications Ordered Filled Start Stop Current Ordering Indication Dosage Frequency Signature Comments Components Source Medication Medication Date Date Medication? Clinician (SIG) Name Name cyclobenzap Yes [id number] 10mg Take 1 Univers rine 10 mg 9-14 tablet by ity of tablet 00:00: mouth in [place] 00 [facility] and 1 tablet at noon and 1 tablet in the evening. pantoprazol 2021- Yes [id number] 40mg Take 1 Univers e 40 mg EC 9-14 10-15 tablet by ity of tablet 00:00: 04:59 mouth in [place] 00 :00 the [facility] for 30 days. diclofenac Yes 75mg Take 1 Unive rs 75 mg EC 9-01 tablet by ity of tablet 00:00: mouth in [place] 00 [facility] and 1 tablet in the evening. Take with meals. cyclobenzap 2021- No [id number] 10mg Take 1 Univers rine 10 mg 8-02 09-14 tablet by ity of tablet 00:00: 00:00 mouth in [place] 00 :00 the [facility] and 1 tablet at noon and 1 tablet in the evening. nirmatrelvi Yes [id number] 3{tbl} Take 3 Univers r-ritonavir 7-29 tablets by it y of (PAXLOVID, 00:00: mouth in [facility] as EUA,) 150 00 the Medical mg x 2- 100 morning Branc h mg tablet and 3 tablets in the evening. meloxicam 2021-0 Yes [id number] 7.5mg Take 1 Univers 7.5 mg 7-22 9104 tablet by ity of tablet 00:00: mouth in [place] 00 the Medical morning. Branch ibuprofen 0 Yes [id number] 600mg Take 1 Univers 600 mg 7-19 tablet by ity of tablet 00:00: mouth [place] 00 every 6 Medical (six) Branch hours as needed for Pain (scale 4-6). hydrOXYzine Yes Sleep 100mg Take 1 Un scotty 100 mg 5-06 disturbance capsule by ity of capsule 00:00: s mouth at [place] [address] bedtime as Medical needed for Branch Other (sleep). doxylamine- Yes 2{tbl} Take 2 Un scotty pyridoxine, 5-06 tablets by it y of vit B6, 00:00: mouth at [place] ([facility] 00 bedtime. Medic al 10-10 mg Branch per tablet hydrOXYzine Yes Sleep 100mg Take 1 Un scotty 100 mg 5-06 disturbance capsule by ity of capsule 00:00: s mouth at [place] [address] bedtime as Medical needed for Branch Other (sleep). doxylamine- Yes 2{tbl} Take 2 Un scotty pyridoxine, 5-06 tablets by it y of vit B6, 00:00: mouth at [place] ([facility]) 00 bedtime. Medic al 10-10 mg Branch per tablet hydrOXYzine Yes Sleep 100mg Take 1 Un scotty 100 mg 5-06 disturbance capsule by ity of capsule 00:00: s mouth at [place] [address] bedtime as Medical needed for Branch Other (sleep). hydrOXYzine 0 Yes Sleep 100mg Take 1 Un scotty 100 mg 5-06 disturbance capsule by ity of capsule 00:00: s mouth at [place] 00 bedtime as Medical needed for Branch Other (sleep). doxylamine- Yes 2{tbl} Take 2 Un scotty pyridoxine, 5-06 tablets by it y of vit B6, 00:00: mouth at [place] ([facility]) 00 bedtime. Medic al 10-10 mg Branch per tablet hydrOXYzine Yes Sleep 100mg Take 1 Un scotty 100 mg 5-06 disturbance capsule by ity of capsule 00:00: s mouth at [place] 00 bedtime as Medical needed for Branch Other (sleep). doxylamine- 2020-0 Yes 2{tbl} Take 2 Un scotty pyridoxine, 5-06 tablets by it y of vit B6, 00:00: mouth at [place] ([facility]) 00 bedtime. Medic al 10-10 mg Branch per tablet metoclopram 2020- Yes Nausea and 10mg Take 1 Univers yuko HCl 10 5-03 vomiting tablet by ity of mg tablet 00:00: during mouth [place] 00 every 6 Medical prior to 22 (six) Branch weeks hours as gestation needed for Nausea and Vomiting (N/V) or Gastroesop hageal reflux. metoclopram 2020-0 Yes Nausea and 10mg Take 1 Univers yuko HCl 10 5-03 vomiting tablet by ity of mg tablet 00:00: during [facility] 00 every 6 Medical prior to 22 (six) Branch weeks hours as gestation needed for Nausea and Vomiting (N/V) or Gastroesop hageal reflux. metoclopram 0 Yes Nausea and 10mg Take 1 Univers yuko HCl 10 5-03 vomiting tablet by ity of mg tablet 00:00: during [facility] 00 every 6 Medical prior to 22 (six) Branch weeks hours as gestation needed for Nausea and Vomiting (N/V) or Gastroesop hageal reflux. metoclopram 0 Yes Nausea and 10mg Take 1 Univers yuko HCl 10 5-03 vomiting tablet by ity of mg tablet 00:00: during [facility] every 6 Medical prior to 22 (six) Branch weeks hours as gestation needed for Nausea and Vomiting (N/V) or Gastroesop hageal reflux. metoclopram 0 Yes Nausea and 10mg Take 1 Univers yuko HCl 10 5-03 vomiting tablet by ity of mg tablet 00:00: during [facility] 00 every 6 Medical prior to 22 (six) Branch weeks hours as gestation needed for Nausea and Vomiting (N/V) or Gastroesop hageal reflux. doxylamine- 2020-0 Yes 2{tbl} Take 2 Un scotty pyridoxine, 4-20 tablets by it y of vit B6, 00:00: mouth at [place] ([facility]) 00 bedtime. Medic al 10-10 mg Branch per tablet doxylamine- 2020- No 2{tbl} Take 2 U nivers pyridoxine, 4-20 05-04 tablets by i ty of vit B6, 00:00: 00:00 mouth at [place] ([facility]) 00 :00 bedtime. Medic al 10-10 mg Branch per tablet pantoprazol Yes Acute 40mg Take 1 Uni vers e 40 mg EC 3-30 superficial tablet by ity of tablet 00:00: gastritis mouth [place] 00 without daily. Medical hemorrhage Branch pantoprazol Yes Acute 40mg Take 1 Uni vers e 40 mg EC 3-30 superficial tablet by ity of tablet 00:00: gastritis mouth [place] 00 without daily. Medical hemorrhage Branch pantoprazol Yes Acute 40mg Take 1 Uni vers e 40 mg EC 3-30 superficial tablet by ity of tablet 00:00: gastritis mouth [place] 00 without daily. Medical hemorrhage Branch pantoprazol Yes Acute 40mg Take 1 Uni vers e 40 mg EC 3-30 superficial tablet by ity of tablet 00:00: gastritis mouth [place] 00 without daily. Medical hemorrhage Branch pantoprazol Yes Acute 40mg Take 1 Uni vers e 40 mg EC 3-30 superficial tablet by ity of tablet 00:00: gastritis mouth [place] 00 without daily. Medical hemorrhage Branch hydrOXYzine 2020- No Sleep 100mg Take 1 U nivers 100 mg 3-30 05-04 disturbance capsule by ity of capsule 00:00: 00:00 s mouth at [place] 00 :00 bedtime as Medical needed for Branch Other (sleep). albuterol Yes Dyspnea on 2{puff} Inhale 2 Univers 90 2-02 exertion Puffs ity of mcg/actuati 00:00: every 6 [place] on inhaler 00 (six) Medical hours as Branch needed for Wheezing or Shortness of Breath. albuterol Yes Dyspnea on 2{puff} Inhale 2 Univers 90 2-02 exertion Puffs ity of mcg/actuati 00:00: every 6 [place] on inhaler 00 (six) Medical hours as Branch needed for Wheezing or Shortness of Breath. albuterol Yes Dyspnea on 2{puff} Inhale 2 Univers 90 2-02 exertion Puffs ity of mcg/actuati 00:00: every 6 [place] on inhaler 00 (six) Medical hours as Branch needed for Wheezing or Shortness of Breath. albuterol Yes Dyspnea on 2{puff} Inhale 2 Univers 90 2-02 exertion Puffs ity of mcg/actuati 00:00: every 6 [place] on inhaler 00 (six) Medical hours as Branch needed for Wheezing or Shortness of Breath. albuterol Yes Dyspnea on 2{puff} Inhale 2 Univers 90 2-02 exertion Puffs ity of mcg/actuati 00:00: every 6 [place] on inhaler 00 (six) Medical hours as Branch needed for Wheezing or Shortness of Breath. busPIRone 5 2019-08 Yes Anxiety 5mg Take 1 U nivers mg tablet 2-04 tablet by ity o f 00:00: mouth 2 [place] (two) Medical times Branch daily. busPIRone 5 2019-08 Yes Anxiety 5mg Take 1 U nivers mg tablet 2-04 tablet by ity o f 00:00: mouth 2 (two) Medical times Branch daily. busPIRone 5 2019-08 Yes Anxiety 5mg Take 1 U nivers mg tablet 2-04 tablet by ity o f 00:00: mouth 2 (two) Medical times Branch daily. busPIRone 5 2019-08 Yes Anxiety 5mg Take 1 U nivers mg tablet 2-04 tablet by ity o f 00:00: mouth 2 (two) Medical times Branch daily. busPIRone 5 2019-08 Yes Anxiety 5mg Take 1 U nivers mg tablet 2-04 tablet by ity o f 00:00: mouth 2 [place] (two) Medical times Branch daily. acyclovir 2019-08 Yes TK 1 T PO Uni vers 400 mg 1-11 TID ity of tablet 00:00: Medical Branch acyclovir 2019- Yes TK 1 T PO Uni vers 400 mg 1-11 TID ity of tablet 00:00: Medical Branch acyclovir 2020- Yes TK 1 T PO Uni vers 400 mg 1-11 TID ity of tablet 00:00: Medical Branch acyclovir 2019- Yes TK 1 T PO Uni vers 400 mg 1-11 TID ity of tablet 00:00: [place] Medical [facility] acyclovir 2020-1 Yes TK 1 T PO Uni vers 400 mg 1-11 TID ity of tablet 00:00: [place] 00 [facility] Immunizations Ordered Filled Immunization Date Status Comments Sour e Immunization Name Name [facility] 2021-04-07 Completed University of 00:00:00 [facility] Influenza Virus 2020-09-15 Completed Universit y of Vaccine Quad .5 mL 00:00:00 [facility] 6+ MO Branch Influenza Virus 2020-09-15 Completed Universit y of Vaccine Quad .5 mL 00:00:00 [facility] 6+ MO Branch Influenza Virus 2020-09-15 Completed Universit y of Vaccine Quad .5 mL 00:00:00 [facility] 6+ MO Branch Influenza Virus 2020-09-15 Completed Universit y of Vaccine Quad .5 mL 00:00:00 [facility] 6+ MO Branch Influenza Virus 2020-09-15 Completed Universit y of Vaccine Quad .5 mL 00:00:00 [facility] 6+ MO Branch Influenza Virus 2020-09-15 Completed Universit y of Vaccine Quad .5 mL 00:00:00 [facility] 6+ MO Branch Influenza Virus 2019-08-28 Completed Universit y of Vaccine Quad .5 mL 00:00:00 [facility] 6+ MO Branch Influenza Virus 2019-08-28 Completed Universit y of Vaccine Quad .5 mL 00:00:00 [facility] 6+ MO Branch Influenza Virus 2019-08-28 Completed Universit y of Vaccine Quad .5 mL 00:00:00 [facility] 6+ MO Branch Influenza Virus 2019-08-28 Completed Universit y of Vaccine Quad .5 mL 00:00:00 [facility] 6+ MO Branch Influenza Virus 2019-08-28 Completed Universit y of Vaccine Quad .5 mL 00:00:00 [facility] 6+ MO Branch Influenza Virus 2019-08-28 Completed Universit y of Vaccine Quad .5 mL 00:00:00 [facility] 6+ MO Branch TDAP 2016-03-23 Completed University of 00:00:00 [facility] TDAP 2016-03-23 Completed University of 00:00:00 [facility] TDAP 2016-03-23 Completed University of 00:00:00 [facility] TDAP 2016-03-23 Completed University of 00:00:00 [facility] TDAP 2016-03-23 Completed University of 00:00:00 [facility] TDAP 2016-03-23 Completed University of 00:00:00 [facility] Influenza Virus 2015-11-10 Completed Universit y of Vaccine Quad IM 3+ 00:00:00 [facility] Influenza Virus 2015-11-10 Completed Universit y of Vaccine Quad IM 3+ 00:00:00 [facility] Influenza Virus 2015-11-10 Completed Universit y of Vaccine Quad IM 3+ 00:00:00 [facility] Influenza Virus 2015-11-10 Completed Universit y of Vaccine Quad IM 3+ 00:00:00 [facility] Influenza Virus 2015-11-10 Completed Universit y of Vaccine Quad IM 3+ 00:00:00 [facility] Influenza Virus 2015-11-10 Completed Universit y of Vaccine Quad IM 3+ 00:00:00 [facility] TDAP 2014-01-06 Completed University of 00:00:00 [facility] TDAP 2014-01-06 Completed University of 00:00:00 [facility] TDAP 2014-01-06 Completed University of 00:00:00 [facility] TDAP 2014-01-06 Completed University of 00:00:00 [facility] TDAP 2014-01-06 Completed University of 00:00:00 [facility] TDAP 2014-01-06 Completed University of 00:00:00 [facility] Procedures This patient has no known procedures. Plan of Care Planned Activity Planned Date Details Comments Source Future Scheduled 2026-03-23 DTaP,Tdap,and Td Univers ity of [place] Test 00:00:00 Vaccines (3 - Td) Medical Br anch [code = DTaP,Tdap,and Td Vaccines (3 - Td)] Future Scheduled 2026-03-23 DTaP,Tdap,and Td Univers ity of [place] Test 00:00:00 Vaccines (3 - Td) Medical Br anch [code = DTaP,Tdap,and Td Vaccines (3 - Td)] Future Scheduled 2026-03-23 DTaP,Tdap,and Td Univers ity of [place] Test 00:00:00 Vaccines (3 - Td) Medical Br anch [code = DTaP,Tdap,and Td Vaccines (3 - Td)] Future Scheduled 2026-03-23 DTaP,Tdap,and Td Univers ity of [place] Test 00:00:00 Vaccines (3 - Td) Medical Br anch [code = DTaP,Tdap,and Td Vaccines (3 - Td)] Future Scheduled 2026-03-23 DTaP,Tdap,and Td Univers it of [place] Test 00:00:00 Vaccines (3 - Td) Medical Br anch [code = DTaP,Tdap,and Td Vaccines (3 - Td)] Future Scheduled 2022-08-12 Screening for [facility] Test 00:00:00 malignant neoplasm Medical B ranch of cervix (procedure) [code = [id number]] Future Scheduled 2022-08-12 Screening for [facility] Test 00:00:00 malignant neoplasm Medical B ranch of cervix (procedure) [code = [id number]] Future Scheduled 2022-08-12 Screening for [facility] Test 00:00:00 malignant neoplasm Medical B ranch of cervix (procedure) [code = [id number]] Future Scheduled 2022-08-12 Screening for [facility] Test 00:00:00 malignant neoplasm Medical B ranch of cervix (procedure) [code = [id number]] Future Scheduled 2022-08-12 Screening for [facility] Test 00:00:00 malignant neoplasm Medical B ranch of cervix (procedure) [code = [id number]] Future Scheduled 2021-08-12 Depression screening Uni [facility] [place] Test 00:00:00 (procedure) [code = Medical Branch [id number]] Future Scheduled 2021-08-12 Depression screening Uni versity of [place] Test 00:00:00 (procedure) [code = Medical Branch [id number]] Future Scheduled 2021-08-12 Depression screening Uni versity of [place] Test 00:00:00 (procedure) [code = Medical Branch [id number]] Future Scheduled 2021-08-12 Depression screening Uni versity of [place] Test 00:00:00 (procedure) [code = Medical Branch [id number]] Future Scheduled 2021-08-12 Depression screening Uni versity of [place] Test 00:00:00 (procedure) [code = Medical Branch [id number]] Future Scheduled 2007 SARS-CoV-2 [facility] Test 00:00:00 (COVID-19) Vaccine Medical B ranch (1) [code = SARS-CoV-2 (COVID-19) Vaccine (1)] Future Scheduled 2007 SARS-CoV-2 [facility] Test 00:00:00 (COVID-19) Vaccine Medical B ranch (1) [code = SARS-CoV-2 (COVID-19) Vaccine (1)] Future Scheduled 2007 SARS-CoV-2 [facility] Test 00:00:00 (COVID-19) Vaccine Medical B ranch (1) [code = SARS-CoV-2 (COVID-19) Vaccine (1)] Future Scheduled 2007 SARS-CoV-2 [facility] Test 00:00:00 (COVID-19) Vaccine Medical B ranch (1) [code = SARS-CoV-2 (COVID-19) Vaccine (1)] Future Scheduled 2007 SARS-CoV-2 [facility] Test 00:00:00 (COVID-19) Vaccine Medical B ranch (1) [code = SARS-CoV-2 (COVID-19) Vaccine (1)] Encounters Start End Encounter Admission Attending Care Care Encounter Source Date/Time Date/Time Type Type Clinicians Facility Department ID 2022-04-26 2022-04-26 Telephone Geo [facility] [[email or web address] [id number] Univers 00:00:00 00:00:00 [facility] [id number] it y [facility] [id number] [place] as KAT?BLEA [id number] Fl israel [address] MEDICAL OFFICE BUILDING 2022-04-24 2022-04-24 Outpatient R [facility] [id number] Univers 15:26:19 23:59:00 BOBBY hayden [facility] Results This patient has no known results.
[2022-04-29 11:27] LABS: Urine Blood Negative (Negative); Urine Glucose Negative (Negative); Urine Protein Negative (Negative)
[2022-04-29 11:41] LABS: Absolute Lymphocytes (CBC) 2.5 K/uL (0.7-4.9); Hematocrit 37.9 % (36.0-45.0); Lymphocytes % 32.8 % (15.3-44.8); MCV 87.2 fL (80-100); MPV 8.1 fL (7.6-11.3); RBC Red Blood Cell Count 4.35 M/uL (3.86-4.86)
[2022-04-29 11:50] LABS: Albumin 3.7 g/dL (3.4-5.0); Bilirubin Total 0.2 mg/dL (0.2-1.0); Protein, Total 7.7 g/dL (6.4-8.2)
--- NOTE | 2022-04-29 12:44 | RAD REPORT ---
EXAM DESCRIPTION: CT - Abdomen Pelvis W Contrast - 04/29/2022 12:21 pm CLINICAL HISTORY: Abdominal pain/left-sided pain COMPARISON: 2020 TECHNIQUE: Computed axial tomography of the abdomen pelvis was obtained. 100 cc Isovue-300 was admin istered intravenously. Oral contrast was not requested which limits evaluation of bowel and appendix All CT scans are performed using dose optimization technique as appropriate and may include automated exposure control or mA/KV adjustment according to patient size. FINDINGS: Mild fatty liver The spleen, pancreas, adrenal and kidneys appear unremarkable. There is no evidence of diverticulitis. The appendix is normal caliber. It contains small stones. No stranding within the adjacent fat. No ev idence of appendicitis. No adnexal mass. Small to moderate umbilical hernia. Neck measures 18 millimeters IMPRESSION: No acute abnormality is displayed.
[2022-04-29] MEDS ORDERED: MORPHINE 4 MG/ML SYR ONE (13:02)
[2022-04-29] MEDS ORDERED: ONDANSETRON 4 MG/2 ML VIAL ONE (13:02)
--- NOTE | 2022-04-29 13:50 | EDPHYS ---
Physician Documentation [facility] Name: Leon Arango Age: 32 yrs Sex: Female : 1990 Arrival Date: 04/29/2022 Time: 10:25 Bed 20 Private MD: ED Physician Jluis Rogers HPI: 04/29 11:16 This 32 yrs old Female presents to ER via Ambulatory with complaints of Abdominal Pain. jmm 11:16 The patient presents with abdominal pain. Onset: The symptoms/episode began/occurred jmm gradually, 2 month(s) ago. The symptoms do not radiate. Associated signs and symptoms: Pertinent negatives: nausea and vomiting, diarrhea. The symptoms are described as achy, intermittent, sharp. Modifying factors: The symptoms are alleviated by nothing, the symptoms are aggravated by nothing. It is unknown whether or not the patient has had similar symptoms in the past. VP COMPLIANCE: 11:52 LMP 04/28/2022 bm7 Historical: - Allergies: 10:38 No Known Allergies; kr3 - PMHx: 10:38 None; kr3 - PSHx: 10:38 section; Ligation of fallopian tube; kr3 - Immunization history:: Adult Immunizations up to date. - Social history:: Smoking status: Reported history of juuling and/or vaping. ROS: 11:16 Constitutional: Negative for fever, chills, and weight loss, Cardiovascular: Negative jmm for chest pain, palpitations, and edema, Respiratory: Negative for shortness of breath, cough, wheezing, and pleuritic chest pain. 11:16 Abdomen/GI: Positive for abdominal pain. 11:16 All other systems are negative. Exam: 11:16 Constitutional: This is a well developed, well nourished patient who is awake, alert, jmm and in no acute distress. Head/Face: atraumatic. Eyes: EOMI, no conjunctival erythema appreciated ENT: Moist Mucus Membranes Neck: Trachea midline, Supple Chest/axilla: Normal chest wall appearance and motion. Cardiovascular: Regular rate and rhythm. No edema appreciated Respiratory: Normal respirations, no respiratory distress appreciated 11:16 Back: Normal ROM Skin: General appearance color normal MS/ Extremity: Moves all extremities, no obvious deformities appreciated, no edema noted to the lower extremities Neuro: Awake and alert Psych: Behavior is normal, Mood is normal, Patient is cooperative and pleasant 11:16 Abdomen/GI: Inspection: abdomen appears normal, Bowel sounds: normal, Palpation: soft, mild abdominal tenderness, in the left upper quadrant and left lower quadrant. Vital Signs: 10:28 Resp 18; Temp 98.2; Pulse Ox 100% on R/A; Weight 116.57 kg; Height 5 ft. 2 in. (157.48 kr3 cm); Pain 5/10; 10:41 BP 100 / 84; Pulse 78; kr3 11:52 BP 127 / 80; Pulse 76; Resp 16; Pulse Ox 100% on R/A; Pain 5/10; bm7 13:57 BP 124 / 74; Pulse 74; Resp 16; Pulse Ox 100% on R/A; Pain 4/10; bm7 10:28 Body Mass Index 47.01 (116.57 kg, 157.48 cm) kr3 MDM: 11:16 Patient medically screened. [facility] 13:48 Data reviewed: vital signs, nurses notes. Counseling: I had a detailed discussion with joleen the patient and/or guardian regarding: the historical points, exam findings, and any diagnostic results supporting the discharge/admit diagnosis, lab results, radiology results, the need for outpatient follow up, to return to the emergency department if symptoms worsen or persist or if there are any questions or concerns that arise at home. 04/29 11:16 Order name: CBC with Diff; Complete Time: 12:35 [facility] 04/29 11:16 Order name: CMP; Complete Time: 12:35 [facility] 04/29 11:16 Order name: Lipase; Complete Time: 12:35 [facility] 04/29 11:17 Order name: CT Abd/Pelvis - IV Contrast Only; Complete Time: 12:44 [facility] 04/29 11:27 Order name: Urine Dipstick-Ancillary; Complete Time: 12:35 [facility] 04/29 11:29 Order name: Urine --Ancillary (enter results); Complete Time: 13:03 [facility] 04/29 11:16 Order name: IV Saline Lock; Complete Time: 11:17 [facility] 04/29 11:16 Order name: Labs collected and sent; Complete Time: 11:17 [facility] Administered Medications: 12:54 Drug: morphine 4 mg Route: IVP; Infused Over: 4 mins; Site: right antecubital; 7 14:01 Follow up: Response: Pain is decreased 7 12:54 Drug: Zofran (Ondansetron) 4 mg Route: IVP; Site: right antecubital; bm7 14:01 Follow up: Response: Nausea is decreased bm7 Disposition: 17:58 Co-signature as Attending Physician, Jluis Rogers MD I agree with the assessment and kdr plan of care. Disposition Summary: 04/29/22 13:49 Discharge Ordered Location: Home [facility] Condition: Stable [facility] Diagnosis - Abdominal pain, unspecified [facility] - Umbilical hernia without obstruction or gangrene [facility] Followup: [facility] - With: Ari Clark MD - When: 2 - 3 days - Reason: Recheck today's complaints, Continuance of care, Re-evaluation by your physician Discharge Instructions: - Discharge Summary Sheet jm - Abdominal Pain, Adult jmm - Hernia, Adult jmm Forms: - Medication Reconciliation Form [facility] - Thank You Letter [facility] - Antibiotic Education [facility] - Prescription Opioid Use [facility] Prescriptions: - Ultracet 37.5-325 mg Oral Tablet - take 1 tablet by ORAL route every 6 hours - for up to 5 days; do not exceed 8 jmm tablets per day.; 12 tablet; Refills: 0, Product Selection Permitted Signatures: Dispatcher [employer] EDMS Jluis Rogers MD MD [facility] Bradley Holm PA PA [facility] Rina Colin, RN RN bm7 Yelena Gonsalves RN RN kr3
--- NOTE | 2022-04-29 13:50 | ER ---
Nurse's Notes [facility] Name: Leon Arango Age: 32 yrs Sex: Female : 1990 Arrival Date: 04/29/2022 Time: 10:25 Bed 20 Private MD: Diagnosis: Abdominal pain, unspecified;Umbilical hernia without obstruction or gangrene Presentation: 04/29 10:28 Chief complaint: Patient states: 2 month of pain in LUQ, seen at [facility] Monday, did cat kr3 scan and ultra sound, dx with umbilical hernia at that time, pain worsened yesterday 04/28/2022, laid on heating pad that helped with pain radiating to back, also took 10 mg of Flexeril, told her to come to ER if pain worsened again. Coronavirus screen: Vaccine status: Patient reports being unvaccinated. Client denies travel out of the [place] in the last 14 days. Ebola Screen: Patient denies travel to an Ebola-affected area in the 21 days before illness onset. Initial Sepsis Screen: Does the patient meet any 2 criteria? No. Patient's initial sepsis screen is negative. Does the patient have a suspected source of infection? Yes: Acute abdominal pain. Risk Assessment: Do you want to hurt yourself or someone else? Patient reports no desire to harm self or others. Onset of symptoms was April 28, 2022. 10:28 Method Of Arrival: Ambulatory kr3 10:28 Acuity: KESHAWN 3 kr3 Triage Assessment: 10:39 General: Appears in no apparent distress. comfortable, Behavior is calm, cooperative, kr3 appropriate for age. Pain: Complains of pain in left upper quadrant. 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 - Social history:: Smoking status: Reported history of juuling and/or vaping. Screenin:14 Abuse screen: Denies threats or abuse. Nutritional screening: No deficits noted. bm7 Tuberculosis screening: No symptoms or risk factors identified. Fall Risk None identified. Assessment: 11:14 General: Appears in no apparent distress. uncomfortable, obese, Behavior is calm, bm7 cooperative, appropriate for age. Pain: Complains of pain in left upper quadrant Pain radiates to back. Neuro: No deficits noted. Cardiovascular: No deficits noted. Respiratory: No deficits noted. GI: Abdomen is round obese, Bowel sounds present X 4 quads. Abd is soft X 4 quads Abdomen is tender to palpation in right upper quadrant. : No deficits noted. No signs and/or symptoms were reported regarding the genitourinary system. Denies burning with urination. EENT: No deficits noted. No signs and/or symptoms were reported regarding the EENT system. Derm: No deficits noted. No signs and/or symptoms reported regarding the dermatologic system. Musculoskeletal: No deficits noted. No signs and/or symptoms reported regarding the musculoskeletal system. 11:47 Reassessment: No changes from previously documented assessment. Patient and/or family bm7 updated on plan of care and expected duration. Pain level reassessed. Patient is alert, oriented x 3, equal unlabored respirations, skin warm/dry/pink. 13:19 Reassessment: Patient and/or family updated on plan of care and expected duration. Pain bm7 level reassessed. Patient is alert, oriented x 3, equal unlabored respirations, skin warm/dry/pink. Patient states feeling better. Patient states symptoms have improved. Vital Signs: 10:28 Resp 18; Temp 98.2; Pulse Ox 100% on R/A; Weight 116.57 kg; Height 5 ft. 2 in. (157.48 kr3 cm); Pain 5/10; 10:41 BP 100 / 84; Pulse 78; kr3 11:52 BP 127 / 80; Pulse 76; Resp 16; Pulse Ox 100% on R/A; Pain 5/10; bm7 13:57 BP 124 / 74; Pulse 74; Resp 16; Pulse Ox 100% on R/A; Pain 4/10; bm7 10:28 Body Mass Index 47.01 (116.57 kg, 157.48 cm) kr3 ED Course: 10:25 Patient arrived in ED. mr 10:25 Bradley Holm PA is PHCP. m 10:25 Jluis Rogers MD is Attending Physician. [facility] 10:38 Triage completed. kr3 10:40 Arm band placed on right wrist. kr3 10:58 Patient placed in an exam room, on a stretcher. iw 11:13 Inserted saline lock: 20 gauge in right antecubital area, using aseptic technique. jw7 Blood collected. 11:14 Rina Colin, RN is Primary Nurse. bm7 11:14 No apparent distress. Resting quietly. Awaiting lab results. bm7 11:14 Patient has correct armband on for positive identification. Bed in low position. Call bm7 light in reach. Side rails up X 1. Client placed on continuous cardiac and pulse oximetry monitoring. NIBP monitoring applied. Warm blanket given. Assisted to bathroom. 11:14 Initial lab(s) drawn, by ED staff, sent to lab. Urine collected: clean catch specimen, bm7 clear. Patient maintains SpO2 saturation greater than 95% on room air. 12:23 CT Abd/Pelvis - IV Contrast Only In Process Unspecified. EDMS 13:48 Ari Clark MD is Referral Physician. [facility] 13:57 No provider procedures requiring assistance completed. Patient did not have IV access bm7 during this emergency room visit. intact, bleeding controlled, No redness/swelling at site. Pressure dressing applied. Administered Medications: 12:54 Drug: morphine 4 mg Route: IVP; Infused Over: 4 mins; Site: right antecubital; bm7 14:01 Follow up: Response: Pain is decreased bm7 12:54 Drug: Zofran (Ondansetron) 4 mg Route: IVP; Site: right antecubital; bm7 14:01 Follow up: Response: Nausea is decreased 7 Medication: 11:14 VIS not applicable for this client. bm7 Outcome: 13:49 Discharge ordered by . [facility] 13:57 Discharged to home ambulatory. bm7 13:57 Condition: good 13:57 Discharge instructions given to patient, Instructed on discharge instructions, follow up and referral plans. medication usage, Demonstrated understanding of instructions. 14:10 Patient left the ED. bm7 Signatures: Dispatcher [employer] EDMS Bradley Holm PA PA jmm Rivera, Mary Cathie Otero RN ELIZABETH iw Rina Colin, RN RN bm7 Charline Harris jw7 Yelena Gonsalves RN RN kr3 Corrections: (The following items were deleted from the chart) 10:38 10:28 Onset of symptoms was April 29, 2022 kr3 kr3
[2022-04-30 19:12] VITALS: TEMP 98.2; O2SAT 100
[2022-04-30 19:20] VITALS: BP 124/74
== END 2022-04-29 14:10 | disposition home or self-care (01) ==
LOC: ER 10:21
DX: K42.9 Umbilical hernia without obstruction or gangrene (principal)
CPT/HCPCS: 85025; 36415; 81025; 81003; 83690; 80053; 74177; 96375; 96374; 99284; Q9967; J2405